=== PATIENT | female | born 1985 | race Caucasian/White ===

== ENCOUNTER 2017-12-13 00:06 | Emergency (ER) | payer BC, OTHER ==
[2017-12-13 01:05] LABS: ABS Basophils 0.1 10^3/ul (0-0.2); ABS Eosinophils 0.1 10^3/ul (0-0.6); ABS Lymphocytes 2.1 10^3/ul (1.0-4.8); ABS Monocytes 0.4 10^3/ul (0-0.8); ABS Nucleated RBC 0 10^3/ul; Eosinophil % 2.1 % (0-6); Hematocrit 40 % (35-47); Hemoglobin 13.5 g/dl (12.0-16.0); Lymphocyte % 36.7 % (25-47); Mean Corpuscular HGB Conc 34 g/dl (31-36); Mean Corpuscular Hemoglobin 30 pg (27-31); Mean Corpuscular Volume 88 fL (80-97); Mean Platelet Volume 9.2 um3 (7.4-10.4); Nucleated Red Blood Cells % 0; Platelet Count 235 10^3/ul (150-450); Red Blood Count 4.52 10^6/ul (4.00-5.40); Red Cell Distribution Width 14 % (10.5-15); White Blood Count 5.7 10^3/ul (3.5-10.8)
[2017-12-13 01:20] LABS: EGFR Non-African American 94.5 (>60)
[2017-12-13 01:43] LABS: Urine Appearance Clear; Urine Blood Negative (Negative); Urine Color Yellow; Urine Ketones Negative (Negative); Urine Protein Negative (Negative); Urine Specific Gravity 1.009 (1.010-1.030); Urine Urobilinogen Negative (Negative)
--- NOTE | 2017-12-13 05:14 | ED ---
Flip Roper Tiffany, scribed for Amari Mcgee MD on 12/13/17 at 0056 . Psychiatric Complaint - HPI Summary HPI Summary: 31 year old F BIB police 941 to [facility] complains of suicidal ideation with no plan since one hour ago. Symptoms aggravated by nothing. Symptoms alleviated by nothing. Patient reports loneliness. She is tearful and upset. Feels purposeless and helpless. Admits to drinking wine. Per police, patient sent [employer] text to friends and friend called 911. youth probation officer reports that this is not the first time patient has sent [employer] texts. Hx depression. Has had therapist before, but does not currently have one. She states her job adds stress and exhaustion. - History Of Current Complaint Chief Complaint: [facility]ental[facility] Time Seen by Provider: 12/13/17 00:27 Hx Obtained From: Patient, Other: - police Onset/Duration: Lasting Hours - 1, Still Present Timing: Constant Aggravating Factor(s): Nothing Alleviating Factor(s): Nothing Has Suicidal: Reports: Thoughts. Denies: With A Plan - Allergies/Home Medications Allergies/Adverse Reactions: Allergies Allergy/AdvReac Type Severity Reaction Status Date / Time No Known Allergies Allergy Verified 12/13/17 00:14 Home Medications: Home Medications Methylphenidate HCl [Methylphenidate ER] 1 tab PO DAILY 12/13/17 [History Confirmed 12/13/17] PMH/Surg Hx/FS Hx/Imm Hx Previously Healthy: No Sensory History: Reports: Hx Hearing Aid, Hx Hearing Problem Denies: Hx Deafness EENT History: Reports: Hx Hearing Problem, Hx Hearing Aid Denies: Hx Deafness Psychiatric History: Reports: Hx Attention Deficit Hyperactivity Disorder - takes Adderrall when needed, Hx Depression - Surgical History Surgery Procedure, Year, and Place: NONE Infectious Disease History: No Infectious Disease History: Denies: Traveled Outside the [place] in Last 30 Days - Family History Known Family History: Negative: Blood Disorder - Social History Lives: Dormitory/Roommates - 2 roommates Alcohol Use: Occasionally Hx Tobacco Use: No Smoking Status (MU): Never Smoked Tobacco Review of Systems Negative: Fever Positive: Other - suicidal ideation with no plan, loneliness, is tearful and upset, feels helpless and purposeless, admits to drinking wine All Other Systems Reviewed And Are Negative: Yes Physical Exam - Summary Physical Exam Summary: Appearance: Well appearing, no pain distress Skin: warm, dry, reflects adequate perfusion Head/face: normal Eyes: EOMI, JOANIE ENT: normal. She is wearing hearing aids. Neck: supple, non-tender Respiratory: CTA, breath sounds present Cardiovascular: RRR, pulses symmetrical Abdomen: non-tender, soft Bowel Sounds: present Musculoskeletal: normal, strength/ROM intact Neuro: normal, sensory motor intact, A&Ox3 Psych: She is tearful. She has suicidal thoughts, but no plan. There are no signs of self injury. Triage Information Reviewed: Yes Vital Signs On Initial Exam: Initial Vitals Temp Pulse Resp BP Pulse Ox 99.2 F 90 16 130/91 100 12/13/17 00:10 12/13/17 00:10 12/13/17 00:10 12/13/17 00:10 12/13/17 00:10 Vital Signs Reviewed: Yes Diagnostics - Vital Signs Vital Signs Temp Pulse Resp BP Pulse Ox 12/13/17 00:10 99.2 F 90 16 130/91 100 - Laboratory Lab Results: Lab Results 12/13/17 12/13/17 12/13/17 Range/Units 00:46 00:46 01:35 WBC 5.7 (3.5-10.8) 10^3/ul RBC 4.52 (4.00-5.40) 10^6/ul Hgb 13.5 (12.0-16.0) g/dl Hct 40 (35-47) % MCV 88 (80-97) fL MCH 30 (27-31) pg MCHC 34 (31-36) g/dl RDW 14 (10.5-15) % Plt Count 235 (150-450) 10^3/ul MPV 9.2 (7.4-10.4) um3 Neut % (Auto) 53.9 (38-83) % Lymph % (Auto) 36.7 (25-47) % [place] % (Auto) 6.4 (0-7) % Eos % (Auto) 2.1 (0-6) % Baso % (Auto) 0.9 (0-2) % Absolute Neuts (auto) 3.0 (1.5-7.7) 10^3/ul Absolute Lymphs (auto) 2.1 (1.0-4.8) 10^3/ul Absolute Monos (auto) 0.4 (0-0.8) 10^3/ul Absolute Eos (auto) 0.1 (0-0.6) 10^3/ul Absolute Basos (auto) 0.1 (0-0.2) 10^3/ul Absolute Nucleated RBC 0 10^3/ul Nucleated RBC % 0 Sodium 138 (135-145) mmol/L Potassium 3.9 (3.5-5.0) mmol/L Chloride 107 (101-111) mmol/L Carbon Dioxide 21 L (22-32) mmol/L Anion Gap 10 (2-11) mmol/L BUN 8 (6-24) mg/dL Creatinine 0.72 (0.51-0.95) mg/dL Est GFR ( Amer) 114.3 (>60) Est GFR (Non-Af Amer) 94.5 (>60) BUN/Creatinine Ratio 11.1 (8-20) Glucose 83 (70-100) mg/dL Calcium 9.1 (8.6-10.3) mg/dL Total Bilirubin 0.40 (0.2-1.0) mg/dL AST 11 L (13-39) U/L ALT 8 (7-52) U/L Alkaline Phosphatase 49 (34-104) U/L Total Protein 8.1 (6.4-8.9) g/dL Albumin 4.7 (3.2-5.2) g/dL Globulin 3.4 (2-4) g/dL Albumin/Globulin Ratio 1.4 (1-3) TSH 1.54 (0.34-5.60) mcIU/mL Beta HCG, Quant < 0.60 mIU/mL Urine Color Yellow Urine Appearance Clear Urine pH 5.0 (5-9) Ur Specific Joes 1.009 L (1.010-1.030) Urine Protein Negative (Negative) Urine Ketones Negative (Negative) Urine Blood Negative (Negative) Urine Nitrate Negative (Negative) Urine Bilirubin Negative (Negative) Urine Urobilinogen Negative (Negative) Ur Leukocyte Esterase Negative (Negative) Urine Glucose Negative (Negative) Salicylates < 2.50 (<30) mg/dL Urine Opiates Screen (None Detect) Acetaminophen < 15 mcg/mL Ur Barbiturates Screen (None Detect) Ur Phencyclidine Scrn (None Detect) Ur Amphetamines Screen (None Detect) U Benzodiazepines Scrn (None Detect) Urine Cocaine Screen (None Detect) U Cannabinoids Screen (None Detect) Serum Alcohol 113 H (<10) mg/dL 12/13/17 Range/Units 01:35 WBC (3.5-10.8) 10^3/ul RBC (4.00-5.40) 10^6/ul Hgb (12.0-16.0) g/dl Hct (35-47) % MCV (80-97) fL MCH (27-31) pg MCHC (31-36) g/dl RDW (10.5-15) % Plt Count (150-450) 10^3/ul MPV (7.4-10.4) um3 Neut % (Auto) (38-83) % Lymph % (Auto) (25-47) % [place] % (Auto) (0-7) % Eos % (Auto) (0-6) % Baso % (Auto) (0-2) % Absolute Neuts (auto) (1.5-7.7) 10^3/ul Absolute Lymphs (auto) (1.0-4.8) 10^3/ul Absolute Monos (auto) (0-0.8) 10^3/ul Absolute Eos (auto) (0-0.6) 10^3/ul Absolute Basos (auto) (0-0.2) 10^3/ul Absolute Nucleated RBC 10^3/ul Nucleated RBC % Sodium (135-145) mmol/L Potassium (3.5-5.0) mmol/L Chloride (101-111) mmol/L Carbon Dioxide (22-32) mmol/L Anion Gap (2-11) mmol/L BUN (6-24) mg/dL Creatinine (0.51-0.95) mg/dL Est GFR ( Amer) (>60) Est GFR (Non-Af Amer) (>60) BUN/Creatinine Ratio (8-20) Glucose (70-100) mg/dL Calcium (8.6-10.3) mg/dL Total Bilirubin (0.2-1.0) mg/dL AST (13-39) U/L ALT (7-52) U/L Alkaline Phosphatase (34-104) U/L Total Protein (6.4-8.9) g/dL Albumin (3.2-5.2) g/dL Globulin (2-4) g/dL Albumin/Globulin Ratio (1-3) TSH (0.34-5.60) mcIU/mL Beta HCG, Quant mIU/mL Urine Color Urine Appearance Urine pH (5-9) Ur Specific Joes (1.010-1.030) Urine Protein (Negative) Urine Ketones (Negative) Urine Blood (Negative) Urine Nitrate (Negative) Urine Bilirubin (Negative) Urine Urobilinogen (Negative) Ur Leukocyte Esterase (Negative) Urine Glucose (Negative) Salicylates (<30) mg/dL Urine Opiates Screen None detected (None Detect) Acetaminophen mcg/mL Ur Barbiturates Screen None detected (None Detect) Ur Phencyclidine Scrn None detected (None Detect) Ur Amphetamines Screen None detected (None Detect) U Benzodiazepines Scrn None detected (None Detect) Urine Cocaine Screen None detected (None Detect) U Cannabinoids Screen Presumptive positive A (None Detect) Serum Alcohol (<10) mg/dL Result Diagrams: 12/13/17 00:46 12/13/17 00:46 Lab Statement: Any lab studies that have been ordered have been reviewed, and results considered in the medical decision making process. - EKG 0228 Cardiac Rate: NL - 63 bpm EKG Rhythm: Sinus Rhythm EKG Interpretation: Nml axis. Nml interval. Nml ST. Course/Dx - Course Course Of Treatment: Patient was medically cleared here. Her EKG is normal. She was medically evaluated and cleared for psychiatric evaluation. Following crisis evaluation was selected by the psychiatrist that she be involuntarily admitted. Patient Is not happy about staying, but has not required any medication. Her parents have called and are on their way to be with her from [place] - Differential Dx/Clinical Impression Provider Diagnosis: Mood disorder, Depression, Suicidal ideation Discharge - Sign-Out/Discharge Documenting (check all that apply): Sign-Out Patient Signing out patient TO: Kelby Cox - Discharge Plan Condition: Stable Referrals: No Primary Care Phys,NOPCP [Primary Care Provider] - - Billing Disposition and Condition Condition: STABLE The documentation as recorded by the Flip carranza Tiffany accurately reflects the service I personally performed and the decisions made by , Amari Mcgee MD.
--- NOTE | 2017-12-13 11:16 | ED ---
Umu Roper Jacob, scribed for Kelby Cox MD on 12/13/17 at 1020 . Progress - Progress Note Progress Note: Pt was signed out by Dr. Mcgee. She was evaluated by and will be transferred to a bed at [facility]. Course/Dx - Course Course Of Treatment: Pt was signed out by Dr. Mcgee. She was evaluated by and will be transferred to a bed at [facility]. Dx of depressive disorder NOS. - Diagnoses Provider Diagnoses: Depression Discharge - Sign-Out/Discharge Documenting (check all that apply): Discharge/Admit/Transfer - transfer to [facility], Receiving Sign-Out Receiving patient FROM: Amari Mcgee - Discharge Plan Condition: Stable Disposition: PSYCHIATRIC FACILITY-OTHER Referrals: No Primary Care Phys,NOPCP [Primary Care Provider] - 2 Days The documentation as recorded by the Umu carranza Jacob accurately reflects the service I personally performed and the decisions made by , Kelby Cox MD.
[2017-12-13 11:53] VITALS: BP 118/66
--- NOTE | 2017-12-13 12:32 | PN ---
ED Flex Patient Progress Note Date of Service: 12/13/17 Subjective: This is a 31 year-old F who is being observed secondary to sending suicidal texts to several friends while intoxicated (BAL: 133). Pt has history of one previous inpatient psychiatric about 2 years ago because of suicidal ideation following breakup of relationship. She was subsequently involved in outpatient therapy. When interviewed today, she avidly denies suicidal ideation and contracts for safety, She cites her love for her relatives and for her 5-year-old [place] clarke, having a stressful but rewarding job as protective factors. She admits to a tendency to becoming emotional when intoxicated; she longs for a relationship, has found it hard to find a mate because of her hearing impairment. Her parents are driving from [place] to support her. Objective: Alert, oriented x 4, good eye contact, calm, cooperative, constricted range of affect, euthymic mood, she avidly denies SI/HI or urges for sib and she contracts for safety if discharged. Assessment: Alcohol use disorder; r/o MDD; r/o Borderline traits. Plan: Patient can be discharged home with parents, with follow up at [facility]. Vital Signs Temp Pulse Resp BP Pulse Ox 97.1 F 75 16 118/66 100 12/13/17 11:52 12/13/17 11:52 12/13/17 11:52 12/13/17 11:52 12/13/17 11:52 Lab Results - Entire Visit 12/13/17 12/13/17 12/13/17 01:35 01:35 00:46 WBC RBC Hgb Hct MCV MCH MCHC RDW Plt Count MPV Neut % (Auto) Lymph % (Auto) [place] % (Auto) Eos % (Auto) Baso % (Auto) Absolute Neuts (auto) Absolute Lymphs (auto) Absolute Monos (auto) Absolute Eos (auto) Absolute Basos (auto) Absolute Nucleated RBC Nucleated RBC % Sodium 138 Potassium 3.9 Chloride 107 Carbon Dioxide 21 L Anion Gap 10 BUN 8 Creatinine 0.72 Est GFR ( Amer) 114.3 Est GFR (Non-Af Amer) 94.5 BUN/Creatinine Ratio 11.1 Glucose 83 Calcium 9.1 Total Bilirubin 0.40 AST 11 L ALT 8 Alkaline Phosphatase 49 Total Protein 8.1 Albumin 4.7 Globulin 3.4 Albumin/Globulin Ratio 1.4 TSH 1.54 Beta HCG, Quant < 0.60 Urine Color Yellow Urine Appearance Clear Urine pH 5.0 Ur Specific [place] 1.009 L Urine Protein Negative Urine Ketones Negative Urine Blood Negative Urine Nitrate Negative Urine Bilirubin Negative Urine Urobilinogen Negative Ur Leukocyte Esterase Negative Urine Glucose Negative Salicylates < 2.50 Urine Opiates Screen None detected Acetaminophen < 15 Ur Barbiturates Screen None detected Ur Phencyclidine Scrn None detected Ur Amphetamines Screen None detected U Benzodiazepines Scrn None detected Urine Cocaine Screen None detected U Cannabinoids Screen Presumptive positive A Serum Alcohol 113 H 12/13/17 00:46 WBC 5.7 RBC 4.52 Hgb 13.5 Hct 40 MCV 88 MCH 30 MCHC 34 RDW 14 Plt Count 235 MPV 9.2 Neut % (Auto) 53.9 Lymph % (Auto) 36.7 [place] % (Auto) 6.4 Eos % (Auto) 2.1 Baso % (Auto) 0.9 Absolute Neuts (auto) 3.0 Absolute Lymphs (auto) 2.1 Absolute Monos (auto) 0.4 Absolute Eos (auto) 0.1 Absolute Basos (auto) 0.1 Absolute Nucleated RBC 0 Nucleated RBC % 0 Sodium Potassium Chloride Carbon Dioxide Anion Gap BUN Creatinine Est GFR ( Amer) Est GFR (Non-Af Amer) BUN/Creatinine Ratio Glucose Calcium Total Bilirubin AST ALT Alkaline Phosphatase Total Protein Albumin Globulin Albumin/Globulin Ratio TSH Beta HCG, Quant Urine Color Urine Appearance Urine pH Ur Specific [place] Urine Protein Urine Ketones Urine Blood Urine Nitrate Urine Bilirubin Urine Urobilinogen Ur Leukocyte Esterase Urine Glucose Salicylates Urine Opiates Screen Acetaminophen Ur Barbiturates Screen Ur Phencyclidine Scrn Ur Amphetamines Screen U Benzodiazepines Scrn Urine Cocaine Screen U Cannabinoids Screen Serum Alcohol
--- NOTE | 2017-12-13 14:14 | ED ---
Umu Roper Jacob, scribed for Kelby Cox MD on 12/13/17 at 1302 . Progress - Progress Note Progress Note: Pt was going to be sent to a bed at [facility], but she wants to be discharged instead. Dr. Deleon came and saw her. Pt was discussed with parents, who confirms that Pt has never had a suicide attempt. They will be in the area for a week. Both parents and Dr. Deleon believe she should be discharged. Dr. Cox agrees. Out-patient appointments will be made for her. - Consult/PCP Time Called: 01:45 Course/Dx - Course Course Of Treatment: Pt was going to be sent to a bed at [facility], but she wants to be discharged instead. Dr. Deleon came and saw her. Pt was discussed with parents, who confirms that Pt has never had a suicide attempt. They will be in the area for a week. Both parents and Dr. Deleon believe she should be discharged. Dr. Cox agrees. Out-patient appointments will be made for her. She will be discharged with a diagnosis of depressive disorder NOS. - Diagnoses Provider Diagnoses: Depression Discharge - Sign-Out/Discharge Documenting (check all that apply): Discharge/Admit/Transfer - discharge, Post- Discharge Follow Up - was going to be transfer, will be discharged instead - Discharge Plan Condition: Stable Disposition: HOME Referrals: No Primary Care Phys,NOPCP [Primary Care Provider] - 2 Days The documentation as recorded by the Umu carranza Jacob accurately reflects the service I personally performed and the decisions made by , Kelby Cox MD.
== END 2017-12-13 14:09 | disposition home or self-care (01) ==
LOC: ED 00:06
DX: F10.10 Alcohol abuse, uncomplicated (principal); F32.9 Major depressive disorder, single episode, unspecified; F90.9 Attention-deficit hyperactivity disorder, unspecified type; F39 Unspecified mood [affective] disorder; R45.851 Suicidal ideations
CPT/HCPCS: 36415; 80053; 80307; 80320; 80329; 81003; 84443; 84702; 85025; 93005; 99285; G0480